=== PATIENT | female | born 1995 | race Caucasian/White ===

== ENCOUNTER 2018-08-31 15:45 | Emergency (ER) | payer OTHER, BC ==
[~2018-08-31] VITALS: Ht 154.9 cm; Wt 60.0 kg
[~2018-08-31 15:45] MED LIST: A/B OTIC OT; AMOXICILLIN500 MG PO; ZYRTEC10 MG PO
[2018-08-31 16:49] VITALS: BP 116/75
[2018-08-31] MEDS ORDERED: GENTAK0.32 OS (17:02)
== END 2018-08-31 17:10 | disposition home or self-care (01) | DRG 125 ==
LOC: ED 15:45
DX: S05.02XA Injury of conjunctiva and corneal abrasion without foreign body, left eye, initial encounter (principal); W22.8XXA Striking against or struck by other objects, initial encounter

== ENCOUNTER 2021-02-13 21:07 | Emergency (ER) | payer BC ==
[~2021-02-13 21:07] MED LIST changes: +GENTAK0.32 OS
[2021-02-13] MEDS ORDERED: AMOXICILLIN500 MG PO (22:07)
[2021-02-13] MEDS ORDERED: ULTRAM50 M1 PO (22:07)
[2021-02-13 22:54] VITALS: BP 114/70
== END 2021-02-13 22:54 | disposition home or self-care (01) | DRG 159 ==
LOC: ED 21:07
DX: K08.89 Other specified disorders of teeth and supporting structures (principal)

== ENCOUNTER 2022-11-16 22:54 | Emergency (ER) | payer SELFPAY ==
[~2022-11-16] VITALS: Ht 152.4 cm; Wt 63.0 kg
[~2022-11-16 22:54] MED LIST changes: +ULTRAM50 M1 PO
[2022-11-17] VITALS: BP 103/67
[2022-11-17 00:14] LABS: BASO% 0.1 % (0-3); EOS% 0.4 % (0-8); HEMATOCRIT 38.7 % (37.0-47.0); HEMOGLOBIN 13.1 g/dl (12.0-16.0); IMMATURE GRANULOCYTES 0.1 % (0.0-5.0); MEAN CELL VOLUME 88.8 fL CALC (80.0-100.0); MEAN CORPUSCULAR HGB CONC 33.9 g/dL CAL (32.0-36.0); MONO% 3.7 % (2-13); NEUT# 11.68 thou/uL (2.00-7.15); NEUT% 85.7 % (42-76); RED BLOOD COUNT 4.36 mill/uL (4.20-5.60)
[2022-11-17 00:26] LABS: ALBUMIN 4.8 g/dL (3.2-5.0); ALKALINE PHOSPHATASE 66 u/l (38-126); AMYLASE 54 u/l (30-110); ANION GAP 11 (6-22 (CALC)); BILIRUBIN, TOTAL 0.2 mg/dL (0.02-1.3); BUN 17 mg/dL (7-17); BUN/CREATININE RATIO 28 (12-20 (CALC)); CARBON DIOXIDE 27 mmol/l (22-30); CHLORIDE 105 mmol/l (95-108); CREATININE 0.6 mg/dL (0.5-1.0); GFR FOR AFR.AMER. > 60 ML/MIN (>=60 (CALC)); GFR OTHER RACES > 60 ML/MIN (>=60 (CALC)); LIPASE 82 u/l (23-300); SGOT/AST 38 u/l (14-36); SODIUM 139 mmol/l (137-146); TOTAL PROTEIN 7.6 g/dL (6.3-8.2)
[2022-11-17 00:30] VITALS: BP 99/62
[2022-11-17 01:00] VITALS: BP 102/60
[2022-11-17 01:30] VITALS: BP 102/64
[2022-11-17 02:31] LABS: URINE BILIRUBIN - DIPSTICK NEGATIVE (NEGATIVE); URINE BLOOD DIPSTICK NEGATIVE (NEGATIVE); URINE COLOR YELLOW; URINE GLUCOSE - DIPSTICK NEGATIVE (NEGATIVE); URINE KETONE TRACE mg/dL (NEGATIVE); URINE LEUK ESTERASE NEGATIVE (NEGATIVE); URINE PH 5.5 (4.5-8.0); URINE PROTEIN - DIPSTICK NEGATIVE (NEG-TRACE); URINE SPECIFIC GRAVITY >=1.030; URINE UROBILINOGEN - DIPSTICK 0.2 E.U./dL (0.2)
[2022-11-17] MEDS ORDERED: CIPROFLOXACN500 MG PO (02:36)
[2022-11-17] MEDS ORDERED: ONDANSETRON4 MG PO (02:36)
[2022-11-17 02:46] LABS: URINE NITRITE - DIPSTICK NEGATIVE (Negative)
[2022-11-17 03:52] VITALS: BP 102/64
== END 2022-11-17 02:45 | disposition left against medical advice (07) | DRG 392 ==
LOC: ED 22:54
PROVIDERS: Emergency Medicine
DX: K52.9 Noninfective gastroenteritis and colitis, unspecified (principal); E87.6 Hypokalemia; Z20.822 Contact with and (suspected) exposure to COVID-19